=== PATIENT | female | born 1995 | race Asian ===

== ENCOUNTER 2018-05-25 01:55 | Emergency (ER) | payer OTHER ==
--- NOTE | 2018-05-25 02:31 | ED ---
Substance Abuse/Use - HPI Summary HPI Summary: Pt is a 22 year old female presenting to the ED with intoxication. She is unresponsive due to being intoxicated. HPI is limited due to unresponsiveness. Pt arrived to the ED intoxicated. - History Of Current Complaint Chief Complaint: EDSubstanceAbuse Stated Complaint: ETOH Time Seen by Provider: 05/25/18 02:20 Hx Obtained From: Patient Ingestion History: Type/Name Of Drug - EtOH Timing Of Abuse: Binge Use Severity Initially: Moderate Severity Currently: Moderate Character: Other - asleep Aggravating Factor(s): Nothing Alleviating Factor(s): Nothing - Allergies/Home Medications Allergies/Adverse Reactions: Allergies Allergy/AdvReac Type Severity Reaction Status Date / Time Unable to Assess Allergy Verified 05/25/18 02:05 PMH/Surg Hx/FS Hx/Imm Hx Previously Healthy: Yes Cardiovascular History: Denies: Hx Hypotension Respiratory History: Denies: Hx Asthma - Family History Known Family History: Negative: Renal Disease - Social History Occupation: Student Alcohol Use: Occasionally Hx Substance Use: No Review of Systems Negative: Fever Negative: Edema Neurological: Other - asleep All Other Systems Reviewed And Are Negative: Yes Physical Exam - Summary Physical Exam Summary: Appearance: Asleep, breathing easily. Skin: Warm, dry, no obvious rash Eyes: sclera anicteric, no conjunctival pallor ENT: mucous membranes moist Neck: deferred Respiratory: No signs of respiratory distress, breathes easily Cardiovascular: Appears well perfused, pulses are nml Abdomen: deferred Musculoskeletal: Moving all 4 extremities without obvious discomfort Neurological: Asleep, intoxicated, grunts in response to physical exam Psychiatric: does not appear anxious or depressed Triage Information Reviewed: Yes Vital Signs Reviewed: Yes Discharge - Sign-Out/Discharge Documenting (check all that apply): Patient Departure - Discharge Plan Condition: Improved Disposition: HOME Patient Education Materials: Abuse of Alcohol (ED) Referrals: [facility] [Outside] - Attestation Statements Document Initiated by Scribe: Yes Documenting Scribe: Shae Dia Provider For Whom Catnia is Documenting (Include Credential): Abhilash Chang MD. Scribe Attestation: Shae Sánchez, harryed for Abhilash Chang MD. on 05/25/18 at 0621.
[2018-05-25 06:40] VITALS: BP 94/73
== END 2018-05-25 06:39 | disposition home or self-care (01) ==
LOC: ED 01:55
DX: F10.129 Alcohol abuse with intoxication, unspecified (principal)
CPT/HCPCS: 99282